=== PATIENT | male | born 1940 | race Two or more races ===

== ENCOUNTER 2018-08-12 07:42 | Outpatient (CLI) | payer OTHER | END 2018-08-12 08:09 | disposition home or self-care (01) | LOC: LAB 07:42 | DX: D50.8 Other iron deficiency anemias (principal); M15.0 Primary generalized (osteo)arthritis; I10 Essential (primary) hypertension; N40.0 Benign prostatic hyperplasia without lower urinary tract symptoms; N30.00 Acute cystitis without hematuria; E78.4 Other hyperlipidemia; E03.8 Other specified hypothyroidism ==

== ENCOUNTER 2018-08-12 07:57 | Outpatient (CLI) | payer OTHER | END 2018-08-12 08:03 | disposition home or self-care (01) | LOC: RAD 07:57 | DX: J44.9 Chronic obstructive pulmonary disease, unspecified (principal) ==

== ENCOUNTER → 2018-08-16 | Outpatient (CLI) | payer OTHER | END | disposition home or self-care (01) | LOC: TOM 07:30 | DX: R26.89 Other abnormalities of gait and mobility (principal) ==

== ENCOUNTER 2019-06-02 11:52 | Emergency (ER) | payer OTHER ==
[~2019-06-02] VITALS: Ht 157.5 cm; Wt 56.7 kg
== END 2019-06-02 13:43 ==
LOC: ER 11:52
DX: S52.592A Other fractures of lower end of left radius, initial encounter for closed fracture (principal); W18.39XA Other fall on same level, initial encounter; Y93.89 Activity, other specified; Y92.89 Other specified places as the place of occurrence of the external cause; Y99.8 Other external cause status

== ENCOUNTER 2019-06-02 15:35 | Outpatient (CLI) | payer OTHER | END 2019-06-02 16:24 | disposition home or self-care (01) | LOC: RAD 15:35 | DX: S52.532A Colles' fracture of left radius, initial encounter for closed fracture (principal) ==

== ENCOUNTER 2019-06-03 08:43 | Outpatient (CLI) | payer OTHER | END 2019-06-03 13:21 | disposition home or self-care (01) | LOC: LAB 08:43 | DX: D64.89 Other specified anemias (principal); E88.89 Other specified metabolic disorders; D68.8 Other specified coagulation defects; N39.0 Urinary tract infection, site not specified; Z22.322 Carrier or suspected carrier of Methicillin resistant Staphylococcus aureus ==

== ENCOUNTER 2019-06-05 07:42 | Inpatient (IN) | payer OTHER ==
[~2019-06-05] VITALS: Ht 154.9 cm; Wt 56.7 kg
[2019-06-05] MEDS ORDERED: OXYCONTIN10 M1 PO (09:30)
[2019-06-05] MEDS ORDERED: DIOVAN160 M1 PO (09:30)
[2019-06-05] MEDS ORDERED: CELEBREX200MG PO (09:31)
[2019-06-07] MEDS ORDERED: PREDNISONE10 MG PO (11:33)
[2019-06-07] MEDS ORDERED: LOSARTAN POTAS100 MG PO (11:33)
[2019-06-07] MEDS ORDERED: ANORO ELLIPTA1 EACH IH (11:33)
== END 2019-06-07 11:56 | disposition home or self-care (01) | DRG 511 ==
LOC: CIR.AMB 07:42 → SURH 20:05
PROVIDERS: Orthopaedic Surgery; ADMIT Internal Medicine
PROC: 4A033R1 Measurement of Arterial Saturation, Peripheral, Percutaneous Approach (ICD-10-PCS; 2019-06-05)
PROC: 3E0F7GC Introduction of Other Therapeutic Substance into Respiratory Tract, Via Natural or Artificial Opening (ICD-10-PCS; 2019-06-05)
PROC: 0PSJ04Z Reposition Left Radius with Internal Fixation Device, Open Approach (ICD-10-PCS; principal; 2019-06-06 10:00)
DX: S52.532A Colles' fracture of left radius, initial encounter for closed fracture (principal); J44.1 Chronic obstructive pulmonary disease with (acute) exacerbation; J45.41 Moderate persistent asthma with (acute) exacerbation; I10 Essential (primary) hypertension

== ENCOUNTER 2019-06-22 09:13 | Outpatient (CLI) | payer OTHER ==
[~2019-06-22 09:13] MED LIST: ANORO ELLIPTA1 EACH IH; CELEBREX200MG PO; DIOVAN160 M1 PO; LOSARTAN POTAS100 MG PO; OXYCONTIN10 M1 PO; PREDNISONE10 MG PO
== END 2019-06-22 09:19 | disposition home or self-care (01) ==
LOC: LAB 09:13
DX: E55.9 Vitamin D deficiency, unspecified (principal); M85.88 Other specified disorders of bone density and structure, other site; E21.3 Hyperparathyroidism, unspecified; E88.89 Other specified metabolic disorders; M81.8 Other osteoporosis without current pathological fracture; E56.1 Deficiency of vitamin K

== ENCOUNTER 2019-07-26 10:53 | Outpatient (CLI) | payer OTHER | END 2019-07-26 10:56 | disposition home or self-care (01) | LOC: RAD 10:53 | DX: S52.532D Colles' fracture of left radius, subsequent encounter for closed fracture with routine healing (principal) ==

== ENCOUNTER → 2019-07-27 | Outpatient (CLI) | payer OTHER | END | disposition home or self-care (01) | LOC: NUCLEAR 07-25 10:30 | DX: M81.0 Age-related osteoporosis without current pathological fracture (principal) ==

== ENCOUNTER 2019-07-31 11:46 | Outpatient (CLI) | payer OTHER | END 2019-07-31 11:47 | disposition home or self-care (01) | LOC: RAD 11:46 | DX: S52.532D Colles' fracture of left radius, subsequent encounter for closed fracture with routine healing (principal) ==

== ENCOUNTER 2019-08-08 10:09 | Outpatient (CLI) | payer OTHER | END 2019-08-08 10:29 | disposition home or self-care (01) | LOC: NUCLEAR 10:09 | DX: S52.532D Colles' fracture of left radius, subsequent encounter for closed fracture with routine healing (principal); I87.2 Venous insufficiency (chronic) (peripheral) ==

== ENCOUNTER → 2019-12-15 08:35 | Outpatient (CLI) | payer OTHER | END | disposition home or self-care (01) | LOC: LAB 08:35 | DX: R53.81 Other malaise (principal); R05 Cough; I10 Essential (primary) hypertension ==

== ENCOUNTER → 2021-04-27 | Emergency (ER) | payer OTHER ==
[~2021-04-27] VITALS: Ht 165.1 cm; Wt 49.0 kg
== END | disposition left against medical advice (07) ==
LOC: ER 17:43
DX: Z53.20 Procedure and treatment not carried out because of patient's decision for unspecified reasons (principal)

== ENCOUNTER → 2021-04-28 | Emergency (ER) | payer OTHER | END | disposition home or self-care (01) | LOC: ER 16:16 | DX: R06.02 Shortness of breath (principal); R51.9 Headache, unspecified; Z03.818 Encounter for observation for suspected exposure to other biological agents ruled out ==